=== PATIENT | male | born 1965 | race Caucasian/White ===

== ENCOUNTER 2020-07-02 18:21 | Emergency (ER) | payer SELFPAY ==
[~2020-07-02] VITALS: Ht 170.2 cm; Wt 72.7 kg
[~2020-07-02 18:21] MED LIST: ASPIRIN81 MG PO; PLAVIX75 MG PO
[2020-07-02 18:33] VITALS: Ht 170.2 cm; Wt 72.7 kg
[2020-07-02 18:50] LABS: BASOPHILS 0.3 % (0-2); EOSINOPHILS 0.7 % (0-7); HEMATOCRIT 42.5 % (42.0-54.0); HEMOGLOBIN 14.5 g/dL (13.5-17.5); IMMATURE GRANULOCYTES 0.3 % (0-5); LYMPHOCYTES 31.8 % (15-50); MCH 30.1 pg (26.0-34.0); MCHC 34.1 g/dL (31.0-37.0); MCV 88.4 fL (80.0-100.0); MEAN PLATELET VOLUME 9.2 fL (7.4-10.4); MONOCYTES 9.3 % (2-11); NEUTROPHILS 57.6 % (40-80); PLATELET COUNT 237 10x3/uL (130-400); RBC 4.81 10x6/uL (4.20-6.10); RDW 12.6 % (11.5-14.5); WBC 7.5 10x3/uL (4.8-10.8)
[2020-07-02 19:00] LABS: INR 0.94 (0.85-1.17); PROTIME 12.5 SECONDS (11.6-15.0)
[2020-07-02 19:01] LABS: APTT 27.5 SECONDS (22.8-39.4)
[2020-07-02 19:04] LABS: CALC OSMOLALITY 270 mosm/kg (275-300); CALCIUM 9.6 mg/dL (8.5-10.1); CARBON DIOXIDE 22.6 mmol/L (21.0-32.0); CHLORIDE - SERUM 103 mmol/L (98-107); GLUCOSE 101 mg/dL (74-106); POTASSIUM - SERUM 3.2 mmol/L (3.5-5.1); SODIUM 135 mmol/L (136-145); UREA NITROGEN 14 mg/dL (7-18); eGFR NON AFRICAN AMERICAN 82 mL/min (90-120)
[2020-07-02 19:10] LABS: ALBUMIN 3.8 g/dL (3.4-5.0); ALKALINE PHOSPHATASE 89 U/L (30-120); ALT (SGPT) 92 U/L (10-68); BILIRUBIN - TOTAL 0.85 mg/dL (0.2-1.3); PROTEIN - SERUM 7.5 g/dL (6.4-8.2)
[2020-07-02 19:27] VITALS: BP 140/83
== END 2020-07-02 19:29 | disposition other institution (70) ==
LOC: D.ER 18:21
PROVIDERS: Family Medicine
DX: S07.9XXA Crushing injury of head, part unspecified, initial encounter (principal); S02.0XXB Fracture of vault of skull, initial encounter for open fracture; X58.XXXA Exposure to other specified factors, initial encounter; Z95.5 Presence of coronary angioplasty implant and graft; I25.10 Atherosclerotic heart disease of native coronary artery without angina pectoris